=== PATIENT | female | born 1980 | race Caucasian/White ===

== ENCOUNTER 2018-04-09 16:59 | Emergency (ER) | payer OTHER ==
[~2018-04-09] VITALS: Ht 160 cm; Wt 72.6 kg
[2018-04-09 18:11] LABS: URINE BILIRUBIN NEGATIVE (Negative); URINE BLOOD NEGATIVE (Negative); URINE CLARITY CLEAR; URINE COLOR YELLOW; URINE GLUCOSE-RANDOM NEGATIVE (Negative); URINE KETONES NEGATIVE (Negative); URINE LEUKOCYTES-REFLEX NEGATIVE (Negative); URINE NITRITE-REFLEX NEGATIVE (Negative); URINE PROTEIN NEGATIVE (Negative); URINE SPECIFIC GRAVITY >= 1.030 (1.005-1.030); URINE UROBILINOGEN 0.2 E.U./dl (0.2-1.0)
[2018-04-09] MEDS ORDERED: NORCO 5-325 TA1 EACH PO (18:54)
[2018-04-09] MEDS ORDERED: FLEXERIL PO (18:54)
[2018-04-09 19:07] VITALS: BP 154/94
== END 2018-04-09 19:08 | disposition home or self-care (01) ==
LOC: M.ERS 16:59
PROVIDERS: Physician Assistant Surgical
DX: S73.192A Other sprain of left hip, initial encounter (principal); F17.200 Nicotine dependence, unspecified, uncomplicated; Z90.49 Acquired absence of other specified parts of digestive tract; X50.1XXA Overexertion from prolonged static or awkward postures, initial encounter; Y92.89 Other specified places as the place of occurrence of the external cause; Y93.89 Activity, other specified; Y99.8 Other external cause status

== ENCOUNTER 2018-08-21 19:31 | Inpatient (IN) | payer OTHER ==
[~2018-08-21] VITALS: Ht 160 cm; Wt 83.5 kg
[~2018-08-21 19:31] MED LIST: FLEXERIL PO; NORCO 5-325 TA1 EACH PO
[2018-08-21 19:40] VITALS: BP 170/100
[2018-08-21 20:06] LABS: HEMATOCRIT 40.1 % (37.0-47.0); HEMOGLOBIN 13.7 gm/dL (12.0-15.0); MCH 30.3 pg (26.0-34.0); MCHC 34.2 g/dL (28.0-37.0); MCV 88.6 fL (80.0-100.0); MPV 7.2 fl. (7.2-11.1); NUCLEATED RBCS 0 /100WBC; PLATELET COUNT* 202 thou/uL (150-400); RBC 4.52 mil/uL (4.20-5.00); RDW-CV 12.8 % (10.5-14.5); WBC 6.8 thou/uL (4.0-11.0)
[2018-08-21 20:16] LABS: BE -3.8 mmol/L (-2 to +3); PCO2 32.6 mmHg (35.0-45.0); pH 7.404 (7.340-7.450)
[2018-08-21 20:21] LABS: ANION GAP 8 mmol/L (7-16); BUN 6 mg/dL (7-18); CALCIUM 8.4 mg/dL (8.5-10.1); CHLORIDE 101 mmol/L (98-107); CO2 25 mmol/L (21-32); CREATININE 0.7 mg/dL (0.6-1.3); GLUCOSE 90 mg/dL (70-99); POTASSIUM 3.8 mmol/L (3.5-5.1); SODIUM 134 mmol/L (136-145); TROPONIN-I LEVEL <0.06 ng/mL (<0.06)
[2018-08-21 20:22] LABS: ALBUMIN 3.8 g/dL (3.4-5.0); ALKALINE PHOSPHATASE 92 U/L (46-116); NT-PRO BRAIN NAT PEPTIDE 57 pg/mL (<300); SGOT 38 U/L (15-37); SGPT 57 U/L (30-65); TOTAL BILIRUBIN 0.2 mg/dL (<0.1-1.0); TOTAL PROTEIN 7.5 g/dL (6.4-8.2)
[2018-08-21 20:23] LABS: INFLUENZA B ANTIGEN None Detected (None Detect)
[2018-08-21 20:48] LABS: ABSOLUTE EOSINOPHILS 0.1 thou/uL (0.0-0.7); ABSOLUTE MONOCYTES 0.6 thou/uL (0.0-1.2); ABSOLUTE NEUTROPHILS 5.1 thou/uL (1.6-8.1)
[2018-08-21 20:49] LABS: PLATELET ESTIMATE ADEQUATE
[2018-08-22] VITALS (7 sets, daily range): BP systolic 107–135; BP diastolic 65–86
[2018-08-22] MEDS ORDERED: MULTI VITAMIN1 EACH PO (13:44)
[2018-08-22] MEDS ORDERED: TYLENOL 8 HOUR650 MG PO (13:45)
[2018-08-22] MEDS ORDERED: CLARITIN10 MG PO (13:46)
[2018-08-22] MEDS ORDERED: IBUPROFEN 600600 M1 PO (13:46)
[2018-08-23 03:52] VITALS: BP 135/79
[2018-08-23 05:10] LABS: ABSOLUTE LYMPHOCYTES 1.9 thou/uL (0.8-5.3); ABSOLUTE MONOCYTES 1.3 thou/uL (0.0-1.2); ABSOLUTE NEUTROPHILS 11.8 thou/uL (1.6-8.1); BASOPHILS 0.3 %; HEMATOCRIT 33.8 % (37.0-47.0); LYMPHOCYTES 12.6 %; MCH 30.8 pg (26.0-34.0); MCHC 34.2 g/dL (28.0-37.0); MCV 90.1 fL (80.0-100.0); MONOCYTES 8.5 %; MPV 7.5 fl. (7.2-11.1); NUCLEATED RBCS 0 /100WBC; PLATELET COUNT* 218 thou/uL (150-400); POLYS 78.6 %; RBC 3.75 mil/uL (4.20-5.00); RDW-CV 13.2 % (10.5-14.5); WBC 14.9 thou/uL (4.0-11.0)
[2018-08-23 05:18] LABS: HEMOGLOBIN 11.5 gm/dL (12.0-15.0)
[2018-08-23 05:30] LABS: CALCIUM 8.3 mg/dL (8.5-10.1); CREATININE 0.7 mg/dL (0.6-1.3); MAGNESIUM 1.9 mg/dL (1.8-2.4); POTASSIUM 3.4 mmol/L (3.5-5.1)
[2018-08-23 08:04] VITALS: BP 141/82
[2018-08-23 12:02] VITALS: BP 156/88
[2018-08-23 15:25] VITALS: BP 146/87
[2018-08-23 19:40] VITALS: BP 144/89
[2018-08-24] VITALS: BP 139/84
[2018-08-24 04:00] VITALS: BP 130/93
[2018-08-24 08:55] VITALS: BP 132/88
[2018-08-24 10:51] LABS: ABSOLUTE BASOPHILS 0.1 thou/uL (0.0-0.2); ABSOLUTE MONOCYTES 0.5 thou/uL (0.0-1.2); ABSOLUTE NEUTROPHILS 7.8 thou/uL (1.6-8.1); EOSINOPHILS 0.1 %; HEMATOCRIT 38.4 % (37.0-47.0); HEMOGLOBIN 12.8 gm/dL (12.0-15.0); LYMPHOCYTES 32.5 %; MCH 30.2 pg (26.0-34.0); MCHC 33.4 g/dL (28.0-37.0); MCV 90.6 fL (80.0-100.0); MONOCYTES 4.1 %; MPV 7.1 fl. (7.2-11.1); NUCLEATED RBCS 0 /100WBC; PLATELET COUNT* 235 thou/uL (150-400); POLYS 62.3 %; RBC 4.24 mil/uL (4.20-5.00); RDW-CV 12.9 % (10.5-14.5); WBC 12.5 thou/uL (4.0-11.0)
[2018-08-24 12:00] VITALS: BP 143/87
[2018-08-24 16:00] VITALS: BP 137/90
[2018-08-24 20:25] VITALS: BP 151/97
[2018-08-25] VITALS: BP 145/90
[2018-08-25 04:00] VITALS: BP 138/72
[2018-08-25 05:15] LABS: ALBUMIN 2.9 g/dL (3.4-5.0); CALCIUM 8.6 mg/dL (8.5-10.1); CREATININE 0.7 mg/dL (0.6-1.3); POTASSIUM 3.4 mmol/L (3.5-5.1); TOTAL BILIRUBIN 0.1 mg/dL (<0.1-1.0); TOTAL PROTEIN 6.9 g/dL (6.4-8.2)
[2018-08-25 05:38] LABS: ABSOLUTE LYMPHOCYTES 3.9 thou/uL (0.8-5.3); ABSOLUTE MONOCYTES 0.9 thou/uL (0.0-1.2); ABSOLUTE NEUTROPHILS 8.5 thou/uL (1.6-8.1); BASOPHILS 0.3 %; EOSINOPHILS 0.1 %; HEMATOCRIT 36.9 % (37.0-47.0); HEMOGLOBIN 12.2 gm/dL (12.0-15.0); LYMPHOCYTES 29.4 %; MCH 29.8 pg (26.0-34.0); MCHC 33.2 g/dL (28.0-37.0); MCV 89.6 fL (80.0-100.0); MONOCYTES 6.8 %; MPV 7.6 fl. (7.2-11.1); NUCLEATED RBCS 0 /100WBC; PLATELET COUNT* 262 thou/uL (150-400); POLYS 63.4 %; RBC 4.11 mil/uL (4.20-5.00); RDW-CV 12.7 % (10.5-14.5); WBC 13.3 thou/uL (4.0-11.0)
[2018-08-25 09:40] VITALS: BP 125/63
[2018-08-25 12:18] VITALS: BP 123/72
[2018-08-25 19:40] VITALS: BP 141/87
[2018-08-26] VITALS: BP 134/84
[2018-08-26 07:15] LABS: ABSOLUTE LYMPHOCYTES 2.6 thou/uL (0.8-5.3); ABSOLUTE MONOCYTES 0.9 thou/uL (0.0-1.2); ABSOLUTE NEUTROPHILS 10.4 thou/uL (1.6-8.1); BASOPHILS 0.4 %; HEMATOCRIT 37.3 % (37.0-47.0); HEMOGLOBIN 12.6 gm/dL (12.0-15.0); LYMPHOCYTES 18.7 %; MCHC 33.8 g/dL (28.0-37.0); MCV 88.8 fL (80.0-100.0); MONOCYTES 6.7 %; MPV 7.3 fl. (7.2-11.1); NUCLEATED RBCS 0 /100WBC; PLATELET COUNT* 324 thou/uL (150-400); POLYS 74.2 %
[2018-08-26 07:24] LABS: ALBUMIN 2.9 g/dL (3.4-5.0); CALCIUM 8.7 mg/dL (8.5-10.1); CREATININE 0.7 mg/dL (0.6-1.3); POTASSIUM 4.4 mmol/L (3.5-5.1); TOTAL BILIRUBIN 0.2 mg/dL (<0.1-1.0); TOTAL PROTEIN 7.3 g/dL (6.4-8.2)
[2018-08-26 08:00] VITALS: BP 149/93
[2018-08-26 12:30] VITALS: BP 99/62
--- NOTE | 2018-08-26 12:54 | CON ---
[address] [address] CONSULTATION Name: HILLARY SON Room: [address] IN [facility]#: [id number] Admission: 08/21/18 Attend Phys: Matilda Low MD Discharge: Date of : 80 Report #: [id number] THIS REPORT FOR: //name// CC: Cassy OVERTON physician/PCP Matilda Low MD DATE OF SERVICE: 08/25/2018 INDICATION FOR CONSULTATION: Left upper lobe infiltrate and influenza. HISTORY OF PRESENT ILLNESS: The patient is a 37-year-old female, current smoker with fever, cough, shortness of breath. She developed a left upper lobe infiltrate. She has been sick for 3 days prior to admission. Other family members have been sick with similar symptoms. She did not get her flu shot this fall. She has had much stress in the family over the last several weeks with her father passing away unexpectedly. The patient has been a heavy smoker for 20 years and was positive for influenza A. She was on Tamiflu, received antibiotics, now she is bronchospastic and coughing, still coughing up some phlegm. I was asked to see her. She is still on 2 liters and bronchospastic. She could talk to me in sentences though. PAST MEDICAL HISTORY: She has had history of no significant COPD, has been healthy and just had this influenza A just recently. ALLERGIES: She has no known medical allergies. CURRENT MEDICATIONS: Include Tamiflu 75 mg b.i.d., Solu-Medrol 62.5 mg IV q.8 hours, DuoNeb q.4 hours and she was on prednisone at 40 mg a day. Tessalon Perles were 200 mg t.i.d., guaifenesin 1200 mg b.i.d., Lovenox 40 mg daily, azithromycin 250 mg daily and a nicotine patch 14 mg daily, not on any ceftriaxone. FAMILY HISTORY: Negative for premature cardiopulmonary disease. I am not sure what father away suddenly for within the last several weeks. 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 Smokes 1 pack a day and has done so for 20 years, has a 05-[id number] history. Denies any alcohol or illicit drug use. REVIEW OF SYSTEMS: A 14-point review of systems reviewed and negative except for pertinent positives noted in HPI. PHYSICAL EXAMINATION: GENERAL: This is a pleasant 37-year-old female who is lying in bed on 2 [place] [address] CONSULTATION Name: SONHILLARY Room: [address]#: [id number] Admission: 08/21/18 Attend Phys: Matilda Low MD Discharge: Date of : 80 Report #: [id number] She can talk to me in sentences. VITAL SIGNS: Blood pressure is 123/72, heart rate is 96, respirations 16, saturation on 2 liters is 96%, temperature is 36.8 degrees. She is 5 feet 4 inches tall, weight is 84 kg or 175 pounds, BMI is 33. HEENT: Unremarkable. Mucous membranes are moist. NECK: Supple without nodes. CHEST: Shows inspiratory and expiratory wheezes with prolonged expiratory phase. Some use of accessory muscles. CARDIOVASCULAR: Regular rate and rhythm without murmur, gallop or rub. Heart rate is 90. ABDOMEN: Soft, without masses or megaly. EXTREMITIES: There is no cyanosis, clubbing or edema. NEUROLOGIC: Grossly intact. She moves all fours to commands. LABORATORY DATA: From 08/25/2018 show hemoglobin 12, white count 13,300, platelet counts is 262,000, normal differential, absolute neutrophils 8.5%. Previous electrolytes, sodium was 137, potassium initially was 3.4 this morning, repeated after being repleted was 4.1; chloride 101, carbon dioxide is 27, BUN is 11, creatinine 0.7, glucose 144. LFTs within normal limits. C-reactive protein 65. Albumin is 2.9. ABGs upon admit several days ago on room air showed a pO2 of 68, pH 7.40, pCO2 is 33, bicarbonate is 20 and a sat of 92%. Carboxyhemoglobin was elevated at 1.8%. Serology shows influenza A antigen on the nasal smear is positive for influenza A, negative for B. Group A rapid strep was negative. Chest x-ray initially showed clear and then just yesterday showed left upper lobe infiltrates and a lingular infiltrate. It is a fine interstitial infiltrate. On one of her CT scans she had no pulmonary emboli, but had upper lobe emphysema on 08/21/2018. IMPRESSION: 1. Mild chronic obstructive pulmonary disease with bronchospasm. 2. Influenza A with bronchospasm. 3. Chronic tobacco use. PLAN: We will increase her oral medications to see if we cannot get her bronchospasm under control. She is only on 40 of prednisone at this time. May need IV ceftriaxone or something a little stronger than azithromycin to cover for staph or strep, possibly Omnicef or Biaxin, in the future. We will see how she goes for the next day or two, see if we wean off the oxygen and get her up and moving around. She does have a new infiltrate and may need another chest x-ray to make sure that is stable. Hopefully, can be discharged home maybe in 48-72 hours. I told her she should get a flu shot every year from here on out and she may need to start getting pneumonia shots. May need full PFTs in the future to see if she has any obstructive airways disease after she recovers from this in the next 4-[address] [place] [address] CONSULTATION Name: HILLARY SON Room: [address]#: [id number] Admission: 08/21/18 Attend Phys: Matilda Low MD Discharge: Date of : 80 Report #: [id number] Thanks again for allowing us to participate in this lady's care. We will follow up along with you. <ELECTRONICALLY SIGNED> By: Russell Pérez MD 08/26/18 1254 [id number] [id number] Pérez MD /nt
[2018-08-26 16:20] VITALS: BP 141/86
[2018-08-26 20:00] VITALS: BP 147/86
[2018-08-27] MEDS ORDERED: MUCINEX600 MG PO (11:05)
[2018-08-27] MEDS ORDERED: PROTONIX40 M1 PO (11:10)
[2018-08-27] MEDS ORDERED: PREDNISONE 20 M20 MG PO (11:14)
[2018-08-27 11:17] VITALS: BP 147/86
[2018-08-27] MEDS ORDERED: VENTOLIN HFA 1818 GM INH (11:46)
[2018-08-27] MEDS ORDERED: AUGMENTIN 875-1 EACH PO (11:49)
== END 2018-08-27 12:28 | disposition home or self-care (01) | DRG 193 ==
LOC: M.ERS 19:31 → M.2W 21:17 → M.TBA-ER 21:17 → M.2W 08-22 12:56
PROVIDERS: Family Medicine; Internal Medicine; Nurse Practitioner Family; ADMIT Internal Medicine
DX: J10.1 Influenza due to other identified influenza virus with other respiratory manifestations (principal); J96.01 Acute respiratory failure with hypoxia; J44.0 Chronic obstructive pulmonary disease with (acute) lower respiratory infection; F17.210 Nicotine dependence, cigarettes, uncomplicated; F41.9 Anxiety disorder, unspecified; E87.6 Hypokalemia; J18.9 Pneumonia, unspecified organism; Z28.21 Immunization not carried out because of patient refusal; Z90.49 Acquired absence of other specified parts of digestive tract; Z79.899 Other long term (current) drug therapy

== ENCOUNTER 2019-03-19 00:05 | Emergency (ER) | payer OTHER ==
[~2019-03-19] VITALS: Ht 160 cm; Wt 86.2 kg
[~2019-03-19 00:05] MED LIST changes: +AUGMENTIN 875-1 EACH PO; +CLARITIN10 MG PO; +IBUPROFEN 600600 M1 PO; +MUCINEX600 MG PO; +MULTI VITAMIN1 EACH PO; +PREDNISONE 20 M20 MG PO; +PROTONIX40 M1 PO; +TYLENOL 8 HOUR650 MG PO; +VENTOLIN HFA 1818 GM INH
[2019-03-19] MEDS ORDERED: IBUPROFEN 800800 M1 PO ×2 (00:22→01:05)
[2019-03-19] MEDS ORDERED: IBUPROFEN 800800 MG PO ×3 (01:02→01:06)
[2019-03-19] MEDS ORDERED: FLEXERIL PO ×3 (01:02→01:06)
[2019-03-19 01:16] VITALS: BP 159/104
== END 2019-03-19 01:18 | disposition home or self-care (01) ==
LOC: M.ERS 00:05
DX: M79.604 Pain in right leg (principal); M79.605 Pain in left leg; Z90.49 Acquired absence of other specified parts of digestive tract